=== PATIENT | female | born 1960 ===

== ENCOUNTER → 2016-08-27 | Outpatient (CLI) | payer OTHER ==
[2016-08-27 10:05] LABS: BLOOD UREA NITROGEN 16 mg/dL (7-22); BUN/CREATININE RATIO 17.77 (6-20); CALCIUM 9.8 mg/dL (8.7-10.7); EST GLOMERULAR FILTRATION > 60 (>60 ml/min/1.73m(2)); SERUM ALBUMIN 4.5 g/dL (3.5-4.8)
[2016-08-27 10:16] LABS: HEMATOCRIT 39.4 % (37.0-47.0); HEMOGLOBIN 13.6 g/dL (12.0-16.0); MEAN CORPUSCULAR HEMOGLOBIN 28.8 PG (27-31); MEAN CORPUSCULAR HGB CONC 34.5 g/dL (33-37); MEAN CORPUSCULAR VOLUME 83.5 FL (81-99); RED BLOOD COUNT 4.72 10^6/uL (4.20-5.40)
[2016-08-27 10:17] LABS: BASOPHILS % (AUTO) 1.6 % (0-1); EOSINOPHILS # (AUTO) 0.15 10*3/UL; EOSINOPHILS % (AUTO) 3.5 % (0-8); LYMPHOCYTES # (AUTO) 1.93 10*3/uL; MEAN PLATELET VOLUME 9.4 FL (7.4-12.2); MONOCYTES # (AUTO) 0.32 10*3/UL (0.3-0.8); MONOCYTES % (AUTO) 7.5 % (5-15); NEUTROPHILS # (AUTO) 1.81 10*3/UL; NEUTROPHILS % (AUTO) 42.3 % (50-80)
[2016-08-27 10:18] LABS: BASOPHILS # (AUTO) 0.07 10*3/UL; PLATELET MORPHOLOGY COMMENT NORMAL MORPHOLOGY (NORM); RBC MORPHOLOGY COMMENT NORMAL MORPHOLOGY (NORM); WBC MORPHOLOGY COMMENT NORMAL MORPHOLOGY (NORM)
== END ==
LOC: LAB 09:33
PROVIDERS: ATTEND Internal Medicine
DX: D59.3 Hemolytic-uremic syndrome (principal)
CPT/HCPCS: 36415; 80053; 83615; 85025; 85045